=== PATIENT | female | born 1985 | race Caucasian/White ===

== ENCOUNTER 2018-08-11 22:22 | Emergency (ER) | payer SELFPAY ==
[~2018-08-11] VITALS: Ht 154.9 cm; Wt 68.0 kg
[2018-08-11] MEDS ORDERED: TRAZ-86 PO (22:38)
[2018-08-11] MEDS ORDERED: KETOROLAC 30 MG/ML VIAL. IV ONE (23:00)
[2018-08-11] MEDS ORDERED: IV NORMAL SALINE 1000ML BAG 1,000 ML IV ONE (23:00)
[2018-08-11 23:01] LABS: BILIRUBIN,URINE NEGATIVE (NEG); CLARITY,URINE CLEAR; COLOR,URINE YELLOW; NITRITE,URINE NEGATIVE (NEG); PH,URINE 7.5; PROTEIN,URINE NEGATIVE (NEG-TRACE); UROBILINOGEN,URINE 0.2 mg/dL (0.2 mg/dL)
[2018-08-11 23:07] LABS: BACTERIA,URINE FEW /HPF (0-FEW); SQUAMOUS EPITHELIAL CELL,UR FEW /LPF
[2018-08-11 23:09] LABS: BASO # 0.1 x10^3/uL (0.0-0.2); BASO % 1 % (0-3); EOS # 0.2 x10^3/uL (0.0-0.7); EOS % 1 % (0-3); HEMATOCRIT 37.1 % (36.0-47.0); HEMOGLOBIN 12.5 g/dL (12.0-15.5); LYMPH # 3.8 x10^3/uL (1.0-4.8); LYMPH % 32 % (24-48); MEAN CORPUSCULAR HEMOGLOBIN 33 pg (25-35); MEAN CORPUSCULAR HGB CONC 34 g/dL (31-37); MEAN CORPUSCULAR VOLUME 98 fL (79-100); MONO # 0.9 x10^3/uL (0.0-1.1); MONO % 8 % (0-9); NEUT % 58 % (31-73); PLATELET COUNT 300 x10^3/uL (140-400); RED BLOOD COUNT 3.78 x10^6/uL (3.50-5.40); RED CELL DISTRIBUTION WIDTH 13.2 % (11.5-14.5); WHITE BLOOD COUNT 11.9 x10^3/uL (4.0-11.0)
[2018-08-11 23:11] LABS: AMPHETAMINE/METHAMPHETAMINE NEG (NEG); BARBITURATES NEG (NEG); BENZODIAZEPINES NEG (NEG); CANNABINOIDS NEG (NEG); COCAINE NEG (NEG); METHADONE NEG (NEG); OPIATES NEG (NEG); PHENCYCLIDINE NEG (NEG)
--- NOTE | 2018-08-11 23:11 | PHYS DOC ---
Past Medical History Past Medical History: Other Additional Past Medical Histor: POSSIBLE KIDNEY STONES, METHAPHETAMINE ABUSE/ DETOX Past Surgical History: No Surgical History Alcohol Use: None Drug Use: Methamphetamine Social History Narrative: IN DETOX @ [facility] 07/2018 Adult General Chief Complaint Chief Complaint: FLANK PAIN HPI HPI Patient is a 32 year old female with no significant medical history who presents to the ED today complaining of right lower quadrant abdominal pain radiating to her right flank region that began 2 hours prior to coming to the ED. Patient denies any nausea vomiting, denies any chance she is . Denies any unusual vaginal discharge or concerns for STDs. She states she is at [facility] drug [facility] Review of Systems Review of Systems Constitutional: Denies fever or chills [] Eyes: Denies change in visual acuity, redness, or eye pain [] HENT: Denies nasal congestion or sore throat [] Respiratory: Denies cough or shortness of breath [] Cardiovascular: No additional information not addressed in HPI [] GI: Reports right lower quadrant abdominal pain, denies nausea, vomiting, bloody stools or diarrhea [] : Denies dysuria or hematuria [] Musculoskeletal: Denies back pain or joint pain [] Integument: Denies rash or skin lesions [] Neurologic: Denies headache, focal weakness or sensory changes [] All other systems were reviewed and found to be within normal limits, except as documented in this note. Current Medications Current Medications Current Medications Medications (Trade) Dose Ordered Sig/Katy Start Time Stop Time Status Last Admin Dose Admin Info (CONTRAST GIVEN -- Rx MONITORING) 1 each PRN DAILY PRN 08/11/18 23:45 08/13/18 23:44 Iohexol (Omnipaque 300 Mg/ml) 75 ml 1X ONCE 08/11/18 23:45 08/11/18 23:46 DC 08/11/18 23:38 75 ML Ketorolac Tromethamine (Toradol 30mg Vial) 30 mg 1X ONCE 08/11/18 23:00 08/11/18 23:01 DC 08/11/18 23:10 30 MG Sodium Chloride 1,000 ml @ 1,000 mls/hr 1X ONCE 08/11/18 23:00 08/11/18 23:59 08/11/18 23:09 1,000 MLS/HR Allergies Allergies Allergies Coded Allergies Type Severity Reaction Last Updated Verified amoxicillin Allergy Unknown VOMITING 08/11/18 Yes clavulanic acid Allergy Unknown VOMITING 08/11/18 Yes Physical Exam Physical Exam Constitutional: Well developed, well nourished, no acute distress, non-toxic appearance. [] HENT: Normocephalic, atraumatic, bilateral external ears normal, oropharynx moist, no oral exudates, nose normal. [] Eyes: PERRLA, EOMI, conjunctiva normal, no discharge. [] Neck: Normal range of motion, no tenderness, supple, no stridor. [] Cardiovascular:Heart rate regular rhythm, no murmur [] Lungs & Thorax: Bilateral breath sounds clear to auscultation [] Abdomen: Bowel sounds normal, soft, slight tenderness on palpation of the right lower quadrant with negative psoas sign, negative obturator sign, negative Rovsing sign, no masses, no pulsatile masses. No guarding, no rebound tenderness Skin: Warm, dry, no erythema, no rash. [] Back: No tenderness, no CVA tenderness. [] Extremities: No tenderness, no cyanosis, no clubbing, ROM intact, no edema. [] Neurologic: Alert and oriented X 3, normal motor function, normal sensory function, no focal deficits noted. [] Psychologic: Affect normal, judgement normal, mood normal. [] Current Patient Data Vital Signs Vital Signs Date Time Temp Pulse Resp B/P (MAP) Pulse Ox O2 Delivery O2 Flow Rate FiO2 08/11/18 23:02 78 14 102/52 (69) 99 Room Air 08/11/18 22:30 99.5 99.5 Lab Values Laboratory Tests Test 08/11/18 22:55 08/11/18 23:01 Urine Color Yellow Urine Clarity Clear Urine pH 7.5 Urine Specific [place] 1.015 Urine Protein Negative mg/dL (NEG-TRACE) Urine Glucose (UA) Negative mg/dL (NEG) Urine Ketones (Stick) Negative mg/dL (NEG) Urine Blood Negative (NEG) Urine Nitrite Negative (NEG) Urine Bilirubin Negative (NEG) Urine Urobilinogen Dipstick 0.2 mg/dL (0.2 mg/dL) Urine Leukocyte Esterase Trace (NEG) Urine RBC 3-5 /HPF (0-2) Urine WBC 1-4 /HPF (0-4) Urine Squamous Epithelial Cells Few /LPF Urine Bacteria Few /HPF (0-FEW) POC Urine HCG, Qualitative Hcg negative (Negative) Urine Opiates Screen Neg (NEG) Urine Methadone Screen Neg (NEG) Urine Barbiturates Neg (NEG) Urine Phencyclidine Screen Neg (NEG) Urine Amphetamine/Methamphetamine Neg (NEG) Urine Benzodiazepines Screen Neg (NEG) Urine Cocaine Screen Neg (NEG) Urine Cannabinoids Screen Neg (NEG) Urine Ethyl Alcohol Neg (NEG) White Blood Count 11.9 x10^3/uL (4.0-11.0) H Red Blood Count 3.78 x10^6/uL (3.50-5.40) Hemoglobin 12.5 g/dL (12.0-15.5) Hematocrit 37.1 % (36.0-47.0) Mean Corpuscular Volume 98 fL (79-100) Mean Corpuscular Hemoglobin 33 pg (25-35) Mean Corpuscular Hemoglobin Concent 34 g/dL (31-37) Red Cell Distribution Width 13.2 % (11.5-14.5) Platelet Count 300 x10^3/uL (140-400) Neutrophils (%) (Auto) 58 % (31-73) Lymphocytes (%) (Auto) 32 % (24-48) Monocytes (%) (Auto) 8 % (0-9) Eosinophils (%) (Auto) 1 % (0-3) Basophils (%) (Auto) 1 % (0-3) Neutrophils # (Auto) 7.0 x10^3uL (1.8-7.7) Lymphocytes # (Auto) 3.8 x10^3/uL (1.0-4.8) Monocytes # (Auto) 0.9 x10^3/uL (0.0-1.1) Eosinophils # (Auto) 0.2 x10^3/uL (0.0-0.7) Basophils # (Auto) 0.1 x10^3/uL (0.0-0.2) Sodium Level 139 mmol/L (136-145) Potassium Level 3.9 mmol/L (3.5-5.1) Chloride Level 103 mmol/L (98-107) Carbon Dioxide Level 25 mmol/L (21-32) Anion Gap 11 (6-14) Blood Urea Nitrogen 16 mg/dL (7-20) Creatinine 0.6 mg/dL (0.6-1.0) Estimated GFR (Cockcroft-Gault) 116.6 BUN/Creatinine Ratio 27 (6-20) H Glucose Level 93 mg/dL (70-99) Calcium Level 9.0 mg/dL (8.5-10.1) Total Bilirubin 0.2 mg/dL (0.2-1.0) Aspartate Amino Transferase (AST) 14 U/L (15-37) L Alanine Aminotransferase (ALT) 15 U/L (14-59) Alkaline Phosphatase 41 U/L (46-116) L Total Protein 6.9 g/dL (6.4-8.2) Albumin 3.5 g/dL (3.4-5.0) Albumin/Globulin Ratio 1.0 (1.0-1.7) Lipase 162 U/L (73-393) Ethyl Alcohol Level < 10 mg/dL (0-10) Laboratory Tests 08/11/18 23:01 Laboratory Tests 08/11/18 23:01 EKG EKG [] Radiology/Procedures Radiology/Procedures [] Course & Med Decision Making Course & Med Decision Making Pertinent Labs and Imaging studies reviewed. (See chart for details) This is a 32-year-old female patient presenting to the ED today complaining of right lower quadrant abdominal pain radiating to her flank region. Symptoms began 2 hours prior to coming to the ED. Patient currently is in a drug rehabilitation facility. Negative urine hCG, urine analysis is noted for trace amount of leukocytes, CBC with a WBC of 11.9, CMP with no acute findings. CT of the abdomen and pelvic was noted for a punctuate left renal stone. Patient is in no distress. Discharged on Bactrim. OTC pain relievers. Given prescription for Flomax. Follow -up with PCP or urologist in one week. Dragon Disclaimer Dragon Disclaimer This electronic medical record was generated, in whole or in part, using a voice recognition dictation system. Departure Departure Impression: Primary Impression: Renal calculi Additional Impression: Urinary tract infection Disposition: HOME, SELF-CARE Condition: STABLE Referrals: NO PCP (PCP) RAKAN GALLARDO MD follow up in 1 week Patient Instructions: Kidney Stones, [id number] Additional Instructions: You were evaluated in the emergency room and noted to have a kidney stone and a slight urinary tract infection, we put you on antibiotics, ensure you complete them. Follow-up with your doctor in 1-2 weeks. Scripts Tamsulosin Hcl (FLOMAX) 0.4 Mg Cap.er.24h 1 CAP PO DAILY, #7 CAP 11 Refills Prov: STACI SEWELL APRN 08/12/18 Sulfamethoxazole/Trimethoprim (BACTRIM DS TABLET) 1 Each Tablet 1 TAB PO BID, #14 TAB Prov: STACI SEWELL APRN 08/12/18 Problem Qualifiers Additional Impression: Urinary tract infection Urinary tract infection type: site unspecified Hematuria presence: without hematuria Qualified Codes: N39.0 - Urinary tract infection, site not specified STACI SEWELL APRN Aug 11, 2018 23:11
[2018-08-11 23:16] LABS: CREATININE 0.6 mg/dL (0.6-1.0); GFR 116.6; POTASSIUM 3.9 mmol/L (3.5-5.1)
[2018-08-11 23:22] LABS: ALBUMIN 3.5 g/dL (3.4-5.0); TOTAL BILIRUBIN 0.2 mg/dL (0.2-1.0); TOTAL PROTEIN 6.9 g/dL (6.4-8.2)
[2018-08-11] MEDS ORDERED: CONTRAST GIVEN. MC PRN (23:45)
[2018-08-11] MEDS ORDERED: IOHEXOL 300 MG/ML 100ML VIAL. IV ONE (23:45)
[2018-08-11 23:48] VITALS: BP 105/56
--- NOTE | 2018-08-11 23:49 | RAD ---
PQRS Compliance statement: One or more of the following individualized dose reduction techniques were utilized for this examination: 1. Automated exposure control. 2. Adjustment of the mA and/or kV according to patient size. 3. Use of iterative reconstruction technique. Indication:rlq pain; Omni 300, 75ml TECHNIQUE: CT abdomen and pelvis with IV contrast with multiplanar reformats. COMPARISON: None FINDINGS: Heart is normal in size. No pericardial or pleural effusion. Clear lung bases. Liver, spleen, gallbladder, pancreas, adrenals and right kidney within normal limits. 2 mm nonobstructing stone is seen in the left kidney. Trace amount of free pelvic fluid. No bowel obstruction. Normal appendix. Anteverted uterus. Urinary bladder is within normal limits. No pneumoperitoneum. No suspicious bony lesion. IMPRESSION: 1. Punctate nonobstructing left renal stone. 2. Normal appendix. No bowel obstruction. Electronically signed by: Twan Mota DO (08/11/2018 11:47 PM) [facility]
[2018-08-12] MEDS ORDERED: TAMS0.4C97 PO (00:02)
[2018-08-12] MEDS ORDERED: SULF1TAB24 PO (00:02)
== END 2018-08-12 00:15 | disposition home or self-care (01) ==
LOC: ER 22:22
DX: N20.0 Calculus of kidney (principal); N39.0 Urinary tract infection, site not specified; Z88.1 Allergy status to other antibiotic agents; Z88.8 Allergy status to other drugs, medicaments and biological substances
CPT/HCPCS: 36415; 74177; 80053; 80307; 81001; 81025; 83690; 85025; 87086; 96374; 99284; G0480; J1885; J7030; Q9967; 87186

== ENCOUNTER 2018-09-02 12:52 | Emergency (ER) | payer SELFPAY ==
[~2018-09-02] VITALS: Ht 154.9 cm; Wt 68.0 kg
[~2018-09-02 12:52] MED LIST: SULF1TAB24 PO; TAMS0.4C97 PO; TRAZ-86 PO
[2018-09-02 13:22] VITALS: BP 107/51
[2018-09-02] MEDS ORDERED: IV NORMAL SALINE 1000ML BAG 1,000 ML IV ONE (14:00)
[2018-09-02] MEDS ORDERED: KETOROLAC 30 MG/ML VIAL. IV ONE (14:15)
[2018-09-02] MEDS ORDERED: fentaNYL PF VIAL 100 MCG/2 ML VIAL IV ONE (14:15)
[2018-09-02] MEDS ORDERED: ONDANSETRON PF 4 MG/2 ML VIAL. IV ONE (14:15)
[2018-09-02 14:23] LABS: BILIRUBIN,URINE NEGATIVE (NEG); CLARITY,URINE CLEAR; COLOR,URINE YELLOW; NITRITE,URINE NEGATIVE (NEG); PH,URINE 7.5; PROTEIN,URINE NEGATIVE (NEG-TRACE)
--- NOTE | 2018-09-02 14:26 | PHYS DOC ---
Past Medical History Past Medical History: Other Additional Past Medical Histor: POSSIBLE KIDNEY STONES, METHAPHETAMINE ABUSE/ DETOX Past Surgical History: No Surgical History Alcohol Use: None Drug Use: Methamphetamine Adult General Chief Complaint Chief Complaint: FLANK PAIN HPI HPI Patient is a 32 year old female who presents with diagnosed with kidney stone 3 weeks ago but had no follow-up. Patient states that her pain went away but couple days ago she began having right side and right flank pain with some nausea. Patient rates her pain 8 out of 10 and states that sharp. Patient states she is urinating and able to eat and drink without complication. Patient denies fever, dysuria, abdominal pain, nausea, vomiting, diarrhea and dizziness , chest pain, shortness of air, headache. Review of Systems Review of Systems Constitutional: Denies fever or chills [] Eyes: Denies change in visual acuity, redness, or eye pain [] HENT: Denies nasal congestion or sore throat [] Respiratory: Denies cough or shortness of breath [] Cardiovascular: No additional information not addressed in HPI [] GI: Right flank pain, Denies abdominal pain, nausea, vomiting, bloody stools or diarrhea [] : Denies dysuria or hematuria [] Musculoskeletal: Denies back pain or joint pain [] Integument: Denies rash or skin lesions [] Neurologic: Denies headache, focal weakness or sensory changes [] All other systems were reviewed and found to be within normal limits, except as documented in this note. Current Medications Current Medications Current Medications Medications (Trade) Dose Ordered Sig/Katy Start Time Stop Time Status Last Admin Dose Admin Fentanyl Citrate (Fentanyl 2ml Vial) 50 mcg 1X ONCE 09/02/18 14:15 09/02/18 14:15 DC Ketorolac Tromethamine (Toradol 30mg Vial) 30 mg 1X ONCE 09/02/18 14:15 09/02/18 14:16 DC 09/02/18 14:33 30 MG Ondansetron HCl (Zofran) 4 mg 1X ONCE 09/02/18 14:15 09/02/18 14:16 DC 09/02/18 14:33 4 MG Sodium Chloride 1,000 ml @ 1,000 mls/hr 1X ONCE 09/02/18 14:00 09/02/18 14:59 DC 09/02/18 14:34 1,000 MLS/HR Allergies Allergies Allergies Coded Allergies Type Severity Reaction Last Updated Verified amoxicillin Allergy Intermediate VOMITING 09/02/18 Yes clavulanic acid Allergy Intermediate VOMITING 09/02/18 Yes Physical Exam Physical Exam Constitutional: Well developed, well nourished, no acute distress, non-toxic appearance. [] HENT: Normocephalic, atraumatic, bilateral external ears normal, oropharynx moist, no oral exudates, nose normal. [] Eyes: PERRLA, EOMI, conjunctiva normal, no discharge. [] Neck: Normal range of motion, no tenderness, supple, no stridor. [] Cardiovascular:Heart rate regular rhythm, no murmur [] Lungs & Thorax: Bilateral breath sounds clear to auscultation [] Abdomen: Bowel sounds normal, soft, no tenderness, no masses, no pulsatile masses. [] Skin: Warm, dry, no erythema, no rash. [] Back: No tenderness, Right CVA tenderness. [] Extremities: No tenderness, no cyanosis, no clubbing, ROM intact, no edema. [] Neurologic: Alert and oriented X 3, normal motor function, normal sensory function, no focal deficits noted. [] Psychologic: Affect normal, judgement normal, mood normal. [] Current Patient Data Vital Signs Vital Signs Date Time Temp Pulse Resp B/P (MAP) Pulse Ox O2 Delivery O2 Flow Rate FiO2 09/02/18 13:22 97.9 72 16 107/51 (69) 99 Room Air 97.9 Lab Values Laboratory Tests Test 09/02/18 13:10 09/02/18 13:22 09/02/18 14:20 Urine Collection Type Unknown Urine Color Yellow Urine Clarity Clear Urine pH 7.5 Urine Specific [place] 1.020 Urine Protein Negative mg/dL (NEG-TRACE) Urine Glucose (UA) Negative mg/dL (NEG) Urine Ketones (Stick) Negative mg/dL (NEG) Urine Blood Negative (NEG) Urine Nitrite Negative (NEG) Urine Bilirubin Negative (NEG) Urine Urobilinogen Dipstick 1.0 mg/dL (0.2 mg/dL) Urine Leukocyte Esterase Negative (NEG) Urine RBC 6-10 /HPF (0-2) Urine WBC 1-4 /HPF (0-4) Urine Squamous Epithelial Cells Mod /LPF Urine Bacteria 0 /HPF (0-FEW) Urine Mucus Mod /LPF POC Urine HCG, Qualitative Hcg negative (Negative) White Blood Count 8.4 x10^3/uL (4.0-11.0) Red Blood Count 3.82 x10^6/uL (3.50-5.40) Hemoglobin 12.5 g/dL (12.0-15.5) Hematocrit 38.0 % (36.0-47.0) Mean Corpuscular Volume 100 fL (79-100) Mean Corpuscular Hemoglobin 33 pg (25-35) Mean Corpuscular Hemoglobin Concent 33 g/dL (31-37) Red Cell Distribution Width 13.4 % (11.5-14.5) Platelet Count 284 x10^3/uL (140-400) Neutrophils (%) (Auto) 55 % (31-73) Lymphocytes (%) (Auto) 34 % (24-48) Monocytes (%) (Auto) 8 % (0-9) Eosinophils (%) (Auto) 2 % (0-3) Basophils (%) (Auto) 1 % (0-3) Neutrophils # (Auto) 4.6 x10^3uL (1.8-7.7) Lymphocytes # (Auto) 2.8 x10^3/uL (1.0-4.8) Monocytes # (Auto) 0.7 x10^3/uL (0.0-1.1) Eosinophils # (Auto) 0.2 x10^3/uL (0.0-0.7) Basophils # (Auto) 0.1 x10^3/uL (0.0-0.2) Sodium Level 141 mmol/L (136-145) Potassium Level 4.5 mmol/L (3.5-5.1) Chloride Level 105 mmol/L (98-107) Carbon Dioxide Level 29 mmol/L (21-32) Anion Gap 7 (6-14) Blood Urea Nitrogen 15 mg/dL (7-20) Creatinine 0.6 mg/dL (0.6-1.0) Estimated GFR (Cockcroft-Gault) 116.6 BUN/Creatinine Ratio 25 (6-20) H Glucose Level 89 mg/dL (70-99) Calcium Level 8.8 mg/dL (8.5-10.1) Total Bilirubin 0.1 mg/dL (0.2-1.0) L Aspartate Amino Transferase (AST) 11 U/L (15-37) L Alanine Aminotransferase (ALT) 13 U/L (14-59) L Alkaline Phosphatase 39 U/L (46-116) L Total Protein 6.7 g/dL (6.4-8.2) Albumin 3.3 g/dL (3.4-5.0) L Albumin/Globulin Ratio 1.0 (1.0-1.7) Laboratory Tests 09/02/18 14:20 Laboratory Tests 09/02/18 14:20 EKG EKG [] Radiology/Procedures Radiology/Procedures [] Impressions: [facility] [address] [place] [address] IMAGING REPORT Signed PATIENT: DARÍO DORAN ACCOUNT: [id number] : 1985 LOCATION: ER AGE: 32 SEX: F EXAM STATUS: REG ER ORD. PHYSICIAN: JESSIE DARNELL APRN REASON: flank pain, hx kidney stone PROCEDURE: CT ABDOMEN PELVIS WO CONTRAST EXAM: CT Abdomen and Pelvis without IV contrast CLINICAL HISTORY: DX STONES 3 WKA AGO PAIN IN RIGHT FLANK TODAY COMPARISON: 08/11/2018 TECHNIQUE: Helical CT of the abdomen and pelvis without intravenous contrast. Axial, coronal and sagittal reformatted images were generated. PQRS compliance statement - One or more of the following individualized dose reduction techniques were utilized for this study: 1. Automated exposure control 2. Adjustment of the mA and/or kV according to patient size 3. Use of iterative reconstruction technique FINDINGS: Lack of intravenous contrast limits evaluation of solid organs, vasculature, and lymph nodes. Lower chest: Linear opacities in the lower lobes likely scarring/atelectasis. No pleural effusion or pneumothorax. Abdomen and Pelvis: No focal liver lesion. Liver is mildly enlarged measuring 20.8 cm in length. Gallbladder is normal. No biliary ductal dilatation. Spleen is unremarkable. Adrenal glands and pancreas are unremarkable. No focal renal lesion. No hydronephrosis. A 4 mm left lower pole nonobstructing renal calculus is seen. The bladder is decompressed. Mild fat infiltration about the bladder and wall thickening may be related to cystitis or under distended state. Appendix is normal. No small or large bowel dilatation. Moderate colonic stool content. No abdominal or pelvic lymphadenopathy. No abdominal or pelvic ascites. Aorta is grossly normal in caliber throughout. Bones: Osseous structures are grossly unremarkable. IMPRESSION: 1. 4 mm nonobstructing left lower pole renal calculus. No right renal, ureteral or bladder calculi. 2. Minimal fat infiltration about the bladder with wall thickening possibly from underdistended state or cystitis, can be correlated with UA. 3. Mild hepatomegaly. No focal liver lesion. 4. Moderate colonic stool content. No evidence of bowel obstruction. Electronically signed by: Eligio Hall MD (09/02/2018 3:02 PM) [id number] DICTATED and SIGNED BY: ELIGIO HALL MD DATE: 09/02/18 1502 Course & Med Decision Making Course & Med Decision Making Patient is a 32 year old female who presents with diagnosed with kidney stone 3 weeks ago but had no follow-up. Patient states that her pain went away but couple days ago she began having right side and right flank pain with some nausea. Patient rates her pain 8 out of 10 and states that sharp. Patient states she is urinating and able to eat and drink without complication. Patient denies fever, dysuria, abdominal pain, nausea, vomiting, diarrhea and dizziness , chest pain, shortness of air, headache. Alert and oriented. Speaks full clear senses. Mucous members are moist. Skin is pink warm and dry. Abdomen is soft and nontender. Lungs are clear to auscultation all lobes. Afebrile. Vital signs within normal limits. Right-sided CVA tenderness. CT abdomen pelvis shows 1. 4 mm nonobstructing left lower pole renal calculus. No right renal, ureteral or bladder calculi. 2. Minimal fat infiltration about the bladder with wall thickening possibly from underdistended state or cystitis , can be correlated with UA. 3. Mild hepatomegaly. No focal liver lesion. 4. Moderate colonic stool content. No evidence of bowel obstruction. Blood work unremarkable and Urinalysis shows no infection. Patient will be discharged with Flomax and a referral for urology. Dragon Disclaimer Dragon Disclaimer This electronic medical record was generated, in whole or in part, using a voice recognition dictation system. Departure Departure Impression: Primary Impression: Renal calculi Disposition: 01 HOME, SELF-CARE Condition: STABLE Referrals: NO PCP (PCP) ALVARO SALDIVAR MD Patient Instructions: Kidney Stones Additional Instructions: Follow up with urology. Drink plenty of fluids. Scripts Ibuprofen (IBUPROFEN) 600 Mg Tablet 600 MG PO PRN Q6HRS PRN for INFLAMMATION, #20 TAB Prov: JESSIE DARNELL APRN 09/02/18 Tamsulosin Hcl (FLOMAX) 0.4 Mg Cap.er.24h 1 CAP PO DAILY, #30 CAP 11 Refills Prov: JESSIE DARNELL APRN 09/02/18 JESSIE DARNELL APRN Sep 02, 2018 14:26
[2018-09-02 14:31] LABS: BASO # 0.1 x10^3/uL (0.0-0.2); BASO % 1 % (0-3); EOS # 0.2 x10^3/uL (0.0-0.7); EOS % 2 % (0-3); HEMOGLOBIN 12.5 g/dL (12.0-15.5); LYMPH # 2.8 x10^3/uL (1.0-4.8); LYMPH % 34 % (24-48); MEAN CORPUSCULAR HEMOGLOBIN 33 pg (25-35); MEAN CORPUSCULAR HGB CONC 33 g/dL (31-37); MEAN CORPUSCULAR VOLUME 100 fL (79-100); MONO # 0.7 x10^3/uL (0.0-1.1); MONO % 8 % (0-9); NEUT # 4.6 x10^3uL (1.8-7.7); NEUT % 55 % (31-73); PLATELET COUNT 284 x10^3/uL (140-400); RED BLOOD COUNT 3.82 x10^6/uL (3.50-5.40); RED CELL DISTRIBUTION WIDTH 13.4 % (11.5-14.5); WHITE BLOOD COUNT 8.4 x10^3/uL (4.0-11.0)
[2018-09-02 14:36] LABS: SQUAMOUS EPITHELIAL CELL,UR MOD /LPF
[2018-09-02 14:37] LABS: BACTERIA,URINE 0 /HPF (0-FEW)
[2018-09-02 14:39] LABS: CALCIUM 8.8 mg/dL (8.5-10.1); CREATININE 0.6 mg/dL (0.6-1.0); GFR 116.6; POTASSIUM 4.5 mmol/L (3.5-5.1)
[2018-09-02 14:46] LABS: ALBUMIN 3.3 g/dL (3.4-5.0); TOTAL BILIRUBIN 0.1 mg/dL (0.2-1.0); TOTAL PROTEIN 6.7 g/dL (6.4-8.2)
--- NOTE | 2018-09-02 15:05 | RAD ---
EXAM: CT Abdomen and Pelvis without IV contrast CLINICAL HISTORY: DX STONES 3 WKA AGO PAIN IN RIGHT FLANK TODAY COMPARISON: 08/11/2018 TECHNIQUE: Helical CT of the abdomen and pelvis without intravenous contrast. Axial, coronal and sagittal reformatted images were generated. PQRS compliance statement - One or more of the following individualized dose reduction techniques were utilized for this study: 1. Automated exposure control 2. Adjustment of the mA and/or kV according to patient size 3. Use of iterative reconstruction technique FINDINGS: Lack of intravenous contrast limits evaluation of solid organs, vasculature, and lymph nodes. Lower chest: Linear opacities in the lower lobes likely scarring/atelectasis. No pleural effusion or pneumothorax. Abdomen and Pelvis: No focal liver lesion. Liver is mildly enlarged measuring 20.8 cm in length. Gallbladder is normal. No biliary ductal dilatation. Spleen is unremarkable. Adrenal glands and pancreas are unremarkable. No focal renal lesion. No hydronephrosis. A 4 mm left lower pole nonobstructing renal calculus is seen. The bladder is decompressed. Mild fat infiltration about the bladder and wall thickening may be related to cystitis or under distended state. Appendix is normal. No small or large bowel dilatation. Moderate colonic stool content. No abdominal or pelvic lymphadenopathy. No abdominal or pelvic ascites. Aorta is grossly normal in caliber throughout. Bones: Osseous structures are grossly unremarkable. IMPRESSION: 1. 4 mm nonobstructing left lower pole renal calculus. No right renal, ureteral or bladder calculi. 2. Minimal fat infiltration about the bladder with wall thickening possibly from underdistended state or cystitis, can be correlated with UA. 3. Mild hepatomegaly. No focal liver lesion. 4. Moderate colonic stool content. No evidence of bowel obstruction. Electronically signed by: Eligio Franz MD (09/02/2018 3:02 PM) [id number]
[2018-09-02] MEDS ORDERED: IBUP-1007 PO (15:44)
[2018-09-02] MEDS ORDERED: TAMS0.4C97 PO (15:44)
== END 2018-09-02 15:55 | disposition home or self-care (01) ==
LOC: ER 12:52
DX: N20.0 Calculus of kidney (principal); R10.9 Unspecified abdominal pain; R11.0 Nausea; R16.1 Splenomegaly, not elsewhere classified; Z88.1 Allergy status to other antibiotic agents
CPT/HCPCS: 36415; 74176; 80053; 81001; 81025; 85025; 96374; 96375; 99284; J1885; J2405; J7030; 96361

== ENCOUNTER → 2021-02-20 | Outpatient (CLI) | payer MEDICAID ==
[~2021-02-20] MED LIST changes: +IBUP-1007 PO; +TRAZ-123 PO; -TRAZ-86 PO
--- NOTE | 2021-02-21 13:41 | KCIC ---
Study: US OB >14 WEEKS Clinical Indication: Uterine size and date discrepancy. Comparison: None. Technique: Multiple grayscale images, color Doppler, and M-mode images of the uterus are obtained. Findings: Single intrauterine gestation in cephalic presentation. The placenta is anterior in location without evidence of placenta previa. The amount of amniotic fluid appears decreased. Amniotic fluid index is 8.3 cm. Cervical length is 5.1 cm. Biometrical data: BPD = 7.55 cm for 30 weeks 2 days. HC = 27.71 cm for 30 weeks 2 days. AC = 26.02 cm for 30 weeks 1 days. FL = 5.46 cm for 28 weeks 6 days. CI ratio = 80.8. HC/AC ratio = 1.06. FL/HC ratio = 19.7. FL/AC ratio = 21.0. Overall, the estimated sonographic gestational age is 29 weeks 6 days for an estimated date of delive ry of 05/02/2021. The clinical estimated date of delivery is 05/13/2021. Estimated weight is 1 451 +/- 215 grams. A 4 chamber heart is identified with positive cardiac activity. The estimated heart rate is 135 beats per minute. Bilateral upper and lower extremities are identified. There is a three-vessel cord with cord insertion visualized. stomach and urinary bladder are identified. Both kidneys are seen. The spine and brain are unremarkable. No gross anatomic abnormalities are identified. Impression: 1. Single live intrauterine gestation with estimated sonographic gestational age of 29 weeks 6 days corresponding to an estimated delivery date of 05/02/2021. Clinically estimated delivery date of 04/17. weight estimate of 1451 +/- 215 grams which is at the 68th percentile. 2. Low amniotic fluid index of 8.3 cm. Electronically signed by: Solitario Prescott MD (02/21/2021 1:39 PM) [facility]
== END ==
LOC: KCIC US 14:29
PROVIDERS: ATTEND Obstetrics & Gynecology
DX: O41.93X0 Disorder of amniotic fluid and membranes, unspecified, third trimester, not applicable or unspecified (principal); Z3A.29 29 weeks gestation of pregnancy
CPT/HCPCS: 76805